=== PATIENT | male | born 1950 | race Two or more races ===

== ENCOUNTER 2022-05-08 22:30 | Emergency (ER) | payer OTHER ==
[~2022-05-08] VITALS: Ht 165.1 cm; Wt 77.0 kg
[~2022-05-08 22:30] MED LIST: ASPI-543 PO; ATEN-60 PO; SIMV-8 PO
[2022-05-09 01:02] LABS: Basophils # (auto) 0.1 10 ^3/uL (0-0.2); Eosinophils # (auto) 0.2 10 ^3/uL (0-0.8); Eosinophils % (auto) 2.9 % (0.0-7.0); Hematocrit 45.4 % (41.0-53.0); Hemoglobin 15.6 g/dL (13.5-17.5); Lymphocytes # (auto) 1.2 10 ^3/uL (0.4-5.4); Lymphocytes % (auto) 20.2 % (10.0-50.0); Mean Corpuscular Hemoglobin 30.6 pg (28.0-32.0); Mean Corpuscular Hgb Conc. 34.5 g/dL (32.0-36.0); Mean Corpuscular Volume 88.8 fL (80.0-100.0); Monocytes # (auto) 0.4 10 ^3/uL (0-1.3); Monocytes % (auto) 5.8 % (0.0-12.0); Neutrophils # (auto) 4.2 10 ^3/uL (1.6-8.6); Neutrophils % (auto) 70.1 % (37.0-80.0); Nucleated Red Blood Cells % 0.1 %; Red Blood Cells 5.11 10^6/uL (4.5-5.90); Red Cell Distribution Width 14.5 % (11.8-14.3); White Blood Cell 6.1 10^3/uL (4.4-10.8)
[2022-05-09 01:20] LABS: BUN/Creatinine Ratio 16.6; Calcium 9.3 mg/dL (8.5-10.1); Potassium 4.5 mmol/L (3.5-5.1)
[2022-05-09 01:23] LABS: Bilirubin, Total 0.8 mg/dL (0.2-1.0); Total Protein 7.4 g/dL (6.4-8.2)
[2022-05-09 05:10] VITALS: BP 166/78
[2022-05-09] MEDS ORDERED: PERCOT PO (07:17)
[2022-05-09] MEDS ORDERED: ONDA-144 PO (07:17)
[2022-05-09] MEDS ORDERED: NITR-87 PO (07:17)
== END 2022-05-09 07:50 | disposition home or self-care (01) ==
LOC: ER 22:31
DX: N39.0 Urinary tract infection, site not specified (principal); R79.89 Other specified abnormal findings of blood chemistry; I10 Essential (primary) hypertension
CPT/HCPCS: 36415; 71045; 74176; 80053; 83690; 84484; 85025; 93005